=== PATIENT | male | born 1935 | race Caucasian/White ===

== ENCOUNTER 2024-11-02 18:29 | Emergency (ER) | payer MEDICARE ==
[2024-11-02] MEDS ORDERED: Zyprexa Zydis 5 MG ONE (19:18)
[2024-11-02] MEDS ORDERED: Ativan 1 MG ONE (19:20)
[2024-11-02] MEDS ORDERED: BENADRYL 25 MG CAPSULE ONE (19:20)
[2024-11-02 19:39] VITALS: TEMP 97.8
[2024-11-02] MEDS: zyPREXA 5MG TABLET PO ONE (19:39)
[2024-11-02] MEDS: Ativan 1 MG PO ONE (19:39)
[2024-11-02] MEDS: BENADRYL 25 MG CAPSULE PO ONE (19:39)
[2024-11-02 20:07] LABS: Absolute Neutrophil Ct (ANC) 3.84 x10^3/uL (1.78-5.38); BASOPHIL % 1.3 % (0.2-1.2); Basophil (Absolute #) 0.08 x10^3/uL (0.01-0.08); Eosinophil % 3.3 % (0.8-7.0); Hematocrit 48.4 % (40.1-51.0); Hemoglobin 15.6 g/dL (13.7-17.5); IMMATURE GRAN # 0.02 x10^3u/L (0.001-0.031); IMMATURE GRAN % 0.3 % (0.001-0.429); Lymphocyte (Absolute #) 1.51 x10^3/uL (1.32-3.57); Lymphocytes % 24.6 % (21.8-53.1); Mean Cell Volume 87.2 fL (79.0-92.2); Mean Corpuscular Hemoglobin 28.1 pg (25.7-32.2); Mean Corpuscular Hgb Concent. 32.2 g/dL (32.3-36.5); Mean Platelet Volume 10.4 fL (9.4-12.4); Monocytes % 8.1 % (5.3-12.2); Neutrophil % 62.4 % (34.0-67.9); Platelet Count 235 x10^3/uL (163-337); Red Blood Count 5.55 x10^6/uL (4.63-6.08); White Blood Count 6.2 x10^3/uL (4.23-9.07)
[2024-11-02 20:20] LABS: ALBUMIN 4.9 g/dL (3.5-5.0); ANION GAP 16.2 MEQ/L (5-15); BILIRUBIN,TOTAL 0.9 mg/dL (0.2-1.3); Calcium 9.5 mg/dL (8.4-10.2); Creatinine 1 1.18 mg/dL (0.66-1.25); EST GLOMERULAR FILTRATION RATE 59.7 ML/MIN; Potassium 4.4 mmol/L (3.5-5.1); Total Protein 8.3 g/dL (6.3-8.2)
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
[2024-11-03 05:14] LABS: Appearance Clear (Clear); Bacteria Few /HPF (None Seen); Bilirubin Negative (Negative); Blood Moderate (Negative); Epithelial Cells None Seen /HPF (None Seen); Glucose, Urine Negative (Negative); Ketones Negative (Negative); Leukocyte Esterase Large (Negative); Nitrite Negative (Negative); Protein,Urine Dip Trace (Negative); Specific Gravity 1.015 (1.005-1.030); Urobilinogen 0.2 mg/dL (0.2); WBC >100 /HPF (0-5)
[2024-11-03] MEDS ORDERED: TYLENOL 325 MG ONE (05:19)
[2024-11-03] MEDS: TYLENOL 325 MG PO STA (05:20)
[2024-11-03] MEDS ORDERED: KEFLEX 500 MG ONE (06:40)
[2024-11-03] MEDS: KEFLEX 500 MG PO ONE (06:41)
[2024-11-03 08:13] VITALS: O2SAT 98
[2024-11-03 09:13] VITALS: RESP 16
[2024-11-03 11:36] VITALS: BP 146/59; PULSE 48
== END 2024-11-03 13:10 | disposition short-term general hospital (02) ==
LOC: ED 18:29
DX: N39.0 Urinary tract infection, site not specified (principal); R45.1 Restlessness and agitation; F22 Delusional disorders; I11.0 Hypertensive heart disease with heart failure; I50.9 Heart failure, unspecified; Z79.01 Long term (current) use of anticoagulants; Z79.899 Other long term (current) drug therapy
CPT/HCPCS: 36415; 80053; 81001; 83605; 85025; 87077; 87086; 87186; 99285; A9270-GY